=== PATIENT | female | born 1955 | race Caucasian/White ===

== ENCOUNTER → 2017-06-14 | Outpatient (CLI) | payer BC ==
[~2017-06-14] MED LIST: BENICAR40 MG PO; COLACE 100100 MG/CAP PO; COUMADIN 77.5 MG/TAB PO; HCTZ 25MG TAB25 MG PO; HERBAL LAXATIVE; K-99595 MG PO; KLOR-CON 1010 MEQ PO; LEVOXYL0.05 MG PO; LEXAPRO 10MG10 MG PO; LOVENOX 8080 MG/0.8 SC; PERCOCET 325 MG1 TA2 PO; PERCR 7.5 PO; PREMARIN 0.60.625 M1 PO; PROTONIX 40MG T40 MG PO; ROBAXIN 75750 MG/TAB PO; ROXICODONE15 MG PO
== END ==
LOC: MC.RAD 07:40
DX: Z12.31 Encounter for screening mammogram for malignant neoplasm of breast (principal); Z98.82 Breast implant status

== ENCOUNTER 2018-01-22 09:58 | Inpatient (IN) | payer BC ==
[~2018-01-22] VITALS: Ht 172.7 cm; Wt 85.3 kg
[2018-01-22] MEDS ORDERED: BENICAR40 MG PO (10:09)
[2018-01-22] MEDS ORDERED: XARELTO20 MG PO (10:10)
[2018-01-22] MEDS ORDERED: [UNRECOGNIZED DRUG - OTHER] (10:11)
[2018-01-22 10:43] LABS: HEMATOCRIT 43.4 % (37.0-47.0); HEMOGLOBIN 14.2 g/dl (12.5-16.0); MEAN CELL VOLUME 86 fl (80.0-100.0); MEAN CORPUSCULAR HEMOGLOBIN 28 pg (27.0-31.0); MEAN CORPUSCULAR HGB CONC 33 g/dl (33.0-37.0); MEAN PLATELET VOLUME 9.9 fl (7.4-10.4); PLATELET COUNT 209 K/mm3 (130-400); RED BLOOD COUNT 5.03 M/mm3 (4.10-5.30); REDCELL DISTRIBUTION WIDTH-CV 13.6 % (11.5-14.5)
[2018-01-22 10:56] LABS: ALBUMIN 3.7 gm/dL (3.5-5.0); BILIRUBIN,TOTAL 0.9 mg/dL (0.0-1.0); CREATININE, serum 0.9 mg/dL (0.52-1.25); POTASSIUM 3.4 mmol/L (3.4-5.0); TOTAL PROTEIN 7.4 gm/dL (6.4-8.2)
[2018-01-22 11:08] LABS: C-REACTIVE PROTEIN 23.3 mg/dL (0.0-0.9)
[2018-01-22 11:09] LABS: BAND 21 % (0-10); LYMPHOCYTE 4 % (20.0-51.0); NEUTROPHILS 71 % (42.0-75.2); PLATELET ESTIMATE NORMAL (NORMAL)
[2018-01-22 11:10] LABS: HYPOCHROMIA 1+
[2018-01-22 11:11] LABS: ERYTHROCYTE SEDIMENTATION RATE 27 mm/hr (0-30)
[2018-01-22 12:25] VITALS: BP 138/58; PULSE 88; TEMP 98.7
[2018-01-22] MEDS ORDERED: CALCIUM CARBON650 M2 PO (12:43)
[2018-01-22] MEDS ORDERED: MULTIPLE VITAMI1 TA5 PO (12:44)
[2018-01-22 12:59] VITALS: BP 135/58; PULSE 88; TEMP 98.7
[2018-01-22 15:53] VITALS: BP 141/66; PULSE 88; TEMP 98.3
[2018-01-22 19:35] VITALS: BP 138/70; PULSE 85; TEMP 98.2
[2018-01-22 23:28] VITALS: BP 127/68; PULSE 78; TEMP 99.3
[2018-01-23] VITALS (8 sets, daily range): BP systolic 117–147; BP diastolic 63–72; PULSE 59–89; TEMP 97.9–99.9
[2018-01-23 06:26] LABS: HEMATOCRIT 37.4 % (37.0-47.0); MEAN CELL VOLUME 87 fl (80.0-100.0); MEAN CORPUSCULAR HEMOGLOBIN 28 pg (27.0-31.0); MEAN CORPUSCULAR HGB CONC 32 g/dl (33.0-37.0); MEAN PLATELET VOLUME 10.1 fl (7.4-10.4); PLATELET COUNT 170 K/mm3 (130-400); RED BLOOD COUNT 4.28 M/mm3 (4.10-5.30); REDCELL DISTRIBUTION WIDTH-CV 13.6 % (11.5-14.5)
[2018-01-23 06:31] LABS: HEMOGLOBIN 12.1 g/dl (12.5-16.0)
[2018-01-23 06:51] LABS: CALCIUM 8.2 mg/dL (8.4-10.2); CREATININE, serum 0.72 mg/dL (0.52-1.25); POTASSIUM 3.3 mmol/L (3.4-5.0)
[2018-01-23 07:45] LABS: BAND 3 % (0-10); EOSINOPHIL 1 % (0-4); LYMPHOCYTE 8 % (20.0-51.0); NEUTROPHILS 87 % (42.0-75.2); NUCLEATED RED BLOOD CELL 1 (0-6); PLATELET ESTIMATE NORMAL (NORMAL)
[2018-01-24 03:51] VITALS: BP 118/70; PULSE 56; TEMP 97.7
[2018-01-24 07:30] LABS: BASO % 0.4 % (0.0-2.0); EOS # 0.2 (0.0-0.7); EOS % 2.1 % (0-4.0); GRAN # 5.4 (1.4-6.5); GRAN % 70.5 % (42.2-75.2); HEMATOCRIT 38.9 % (37.0-47.0); HEMOGLOBIN 12.2 g/dl (12.5-16.0); LYMPH # 1.6 (1.2-3.4); LYMPH % 21.2 % (20.0-51.0); MEAN CELL VOLUME 90 fl (80.0-100.0); MEAN CORPUSCULAR HEMOGLOBIN 28 pg (27.0-31.0); MEAN CORPUSCULAR HGB CONC 31 g/dl (33.0-37.0); MEAN PLATELET VOLUME 10.4 fl (7.4-10.4); MONO # 0.4 (0.1-0.6); MONO % 5.3 % (1.7-9.3); PLATELET COUNT 186 K/mm3 (130-400); RED BLOOD COUNT 4.34 M/mm3 (4.10-5.30); REDCELL DISTRIBUTION WIDTH-CV 13.8 % (11.5-14.5)
[2018-01-24 07:45] LABS: CALCIUM 8.5 mg/dL (8.4-10.2); CREATININE, serum 0.77 mg/dL (0.52-1.25); MAGNESIUM 1.9 mg/dL (1.6-2.3); POTASSIUM 3.6 mmol/L (3.4-5.0)
[2018-01-24 08:54] VITALS: BP 142/74; PULSE 66; TEMP 99.4
[2018-01-24 12:03] VITALS: BP 147/71; PULSE 69; TEMP 98
[2018-01-24 16:03] VITALS: BP 132/66; PULSE 64; TEMP 99.2
[2018-01-24 20:09] VITALS: BP 127/53; PULSE 72; TEMP 98.9
[2018-01-25 00:25] VITALS: BP 111/51; PULSE 61; TEMP 97.9
[2018-01-25 04:00] VITALS: BP 127/66; PULSE 67; TEMP 98.2
[2018-01-25 07:17] LABS: BASO # 0.1 (0.0-0.2); BASO % 0.6 % (0.0-2.0); EOS # 0.2 (0.0-0.7); GRAN # 6.7 (1.4-6.5); GRAN % 74.1 % (42.2-75.2); HEMOGLOBIN 11.8 g/dl (12.5-16.0); LYMPH # 1.6 (1.2-3.4); LYMPH % 17.8 % (20.0-51.0); MEAN CELL VOLUME 88 fl (80.0-100.0); MEAN CORPUSCULAR HEMOGLOBIN 28 pg (27.0-31.0); MEAN CORPUSCULAR HGB CONC 32 g/dl (33.0-37.0); MEAN PLATELET VOLUME 10.4 fl (7.4-10.4); MONO # 0.5 (0.1-0.6); MONO % 5.2 % (1.7-9.3); PLATELET COUNT 205 K/mm3 (130-400); RED BLOOD COUNT 4.15 M/mm3 (4.10-5.30); REDCELL DISTRIBUTION WIDTH-CV 13.6 % (11.5-14.5)
[2018-01-25 07:21] LABS: HEMATOCRIT 36.5 % (37.0-47.0)
[2018-01-25 07:29] LABS: CALCIUM 8.5 mg/dL (8.4-10.2); CREATININE, serum 0.79 mg/dL (0.52-1.25); POTASSIUM 3.5 mmol/L (3.4-5.0)
[2018-01-25 08:55] VITALS: BP 129/68; PULSE 76; TEMP 98.2
[2018-01-25] MEDS ORDERED: VANTIN 200200 MG/TAB PO (09:53)
== END 2018-01-25 11:25 | disposition home or self-care (01) | DRG 872 ==
LOC: COL.ER 09:58 → MEDICAL 11:08
PROVIDERS: Emergency Medicine; Family Medicine; Physician Assistant
DX: A41.9 Sepsis, unspecified organism (principal); L03.116 Cellulitis of left lower limb; E11.65 Type 2 diabetes mellitus with hyperglycemia; R07.9 Chest pain, unspecified; T36.0X5A Adverse effect of penicillins, initial encounter; E03.9 Hypothyroidism, unspecified; I10 Essential (primary) hypertension; E87.6 Hypokalemia; Z86.718 Personal history of other venous thrombosis and embolism; Z79.01 Long term (current) use of anticoagulants; Z86.711 Personal history of pulmonary embolism
CPT/HCPCS: 99222-AI; 99232-AI; 99233-AI; 99239; J0696; J2270; J2543; J3370; J7030; J7040; J7050

== ENCOUNTER → 2018-02-14 | Outpatient (CLI) | payer BC ==
[~2018-02-14] MED LIST changes: +CALCIUM CARBON650 M2 PO; +MULTIPLE VITAMI1 TA5 PO; +VANTIN 200200 MG/TAB PO; +XARELTO20 MG PO; +[UNRECOGNIZED DRUG - OTHER]
[2018-02-14 08:39] LABS: BASO # 0.1 (0.0-0.2); BASO % 0.6 % (0.0-2.0); EOS # 0.1 (0.0-0.7); EOS % 1.7 % (0-4.0); GRAN # 4.6 (1.4-6.5); GRAN % 58.3 % (42.2-75.2); HEMATOCRIT 49.1 % (37.0-47.0); HEMOGLOBIN 16.1 g/dl (12.5-16.0); LYMPH # 2.6 (1.2-3.4); LYMPH % 33.5 % (20.0-51.0); MEAN CELL VOLUME 86 fl (80.0-100.0); MEAN CORPUSCULAR HEMOGLOBIN 28 pg (27.0-31.0); MEAN CORPUSCULAR HGB CONC 33 g/dl (33.0-37.0); MEAN PLATELET VOLUME 9.5 fl (7.4-10.4); MONO # 0.4 (0.1-0.6); MONO % 5.5 % (1.7-9.3); PLATELET COUNT 339 K/mm3 (130-400); RED BLOOD COUNT 5.68 M/mm3 (4.10-5.30); REDCELL DISTRIBUTION WIDTH-CV 13.4 % (11.5-14.5)
[2018-02-14 08:50] LABS: ALBUMIN 4.3 gm/dL (3.5-5.0); BILIRUBIN,TOTAL 0.7 mg/dL (0.0-1.0); CALCIUM 9.6 mg/dL (8.4-10.2); CREATININE, serum 1.04 mg/dL (0.52-1.25); POTASSIUM 4.1 mmol/L (3.4-5.0); TOTAL PROTEIN 8.8 gm/dL (6.4-8.2)
[2018-02-14 09:05] LABS: ERYTHROCYTE SEDIMENTATION RATE 4 mm/hr (0-30)
== END ==
LOC: COL.LAB 07:38
PROVIDERS: Internal Medicine
DX: R60.0 Localized edema (principal); I10 Essential (primary) hypertension; Z86.718 Personal history of other venous thrombosis and embolism

== ENCOUNTER → 2018-07-13 | Outpatient (CLI) | payer BC | LOC: MC.RAD 08:35 | DX: Z12.31 Encounter for screening mammogram for malignant neoplasm of breast (principal) ==

== ENCOUNTER → 2019-10-25 | Outpatient (CLI) | payer MEDICARE, OTHER | LOC: MC.RAD 16:00 | DX: Z12.31 Encounter for screening mammogram for malignant neoplasm of breast (principal); M85.80 Other specified disorders of bone density and structure, unspecified site; Z98.82 Breast implant status ==

== ENCOUNTER → 2022-02-26 | Outpatient (CLI) | payer MEDICARE, OTHER | LOC: MC.RAD 11:21 | DX: Z12.31 Encounter for screening mammogram for malignant neoplasm of breast (principal) ==